=== PATIENT | male | born 1950 | race Caucasian/White ===

== ENCOUNTER 2019-05-07 03:00 | Emergency (ER) | payer MEDICARE ==
[2019-05-07] MEDS ORDERED: ASPIRIN 81 MG TABLET, CHEWABLE PO ONE (04:13)
[2019-05-07 04:35] LABS: ABSOLUTE BASOPHILS # (AUTO) 0.1 10^3/uL (0.0-0.2); ABSOLUTE EOSINOPHILS # (AUTO) 0.1 10^3/uL (0.0-0.6); ABSOLUTE LYMPHOCYTES (AUTO) 2.7 10^3/uL (0.5-4.7); ABSOLUTE MONOCYTES (AUTO) 0.7 10^3/uL (0.1-1.4); BASOPHILS % (AUTO) 0.7 % (0-2); EOSINOPHILS % (AUTO) 1.6 % (0-6); HEMATOCRIT 47.1 % (37.9-51.0); HEMOGLOBIN 16.5 g/dL (13.5-17.0); LYMPHOCYTES % (AUTO) 35.8 % (13-45); MEAN CORPUSCULAR HEMOGLOBIN 33.8 pg (27.0-33.4); MEAN CORPUSCULAR HGB CONC 35.1 g/dL (32.0-36.0); MEAN CORPUSCULAR VOLUME 97 fl (80-97); MONOCYTES % (AUTO) 9.4 % (3-13); PLATELET COUNT 114 10^3/uL (150-450); RED BLOOD COUNT 4.88 10^6/uL (4.35-5.55); RED CELL DISTRIBUTION WIDTH 13.8 % (11.5-14.0); SEGMENTED NEUTROPHILS % (AUTO) 52.5 % (42-78); TOTAL CELLS COUNTED % (AUTO) 100 %; WHITE BLOOD COUNT 7.7 10^3/uL (4.0-10.5)
[2019-05-07 04:49] LABS: ALBUMIN 4.9 g/dL (3.5-5.0); ALKALINE PHOSPHATASE 141 U/L (38-126); ANION GAP 9 (5-19); ASPARTATE AMINO TRANSFERASE 36 U/L (17-59); BILIRUBIN,DIRECT 0.2 mg/dL (0.0-0.4); BILIRUBIN,TOTAL 0.8 mg/dL (0.2-1.3); BLOOD UREA NITROGEN 14 mg/dL (7-20); CARBON DIOXIDE 29 mmol/L (22-30); CHLORIDE 103 mmol/L (98-107); CREATINE KINASE 42 U/L (55-170); GLUCOSE 99 mg/dL (75-110); POTASSIUM 4.1 mmol/L (3.6-5.0); TOTAL PROTEIN 7.8 g/dL (6.3-8.2)
[2019-05-07 05:01] LABS: CREATINE KINASE MB 0.52 ng/mL (<4.55); TROPONIN I < 0.012 ng/mL
--- NOTE | 2019-05-07 05:31 | RADIOLOGY REPORT (SQ) ---
Chest single view on 05/07/2019 at 4:33 AM CLINICAL INDICATION: Chest pain COMPARISON: None FINDINGS: The lungs are clear. Cardiac, hilar and mediastinal contours are within normal limits. Pulmonary vascularity is within normal limits. No bony abnormality is noted. IMPRESSION: No active disease.
--- NOTE | 2019-05-07 07:13 | RADIOLOGY REPORT (SQ) ---
CT head without contrast on 05/07/2019 at 6:02 AM CLINICAL INDICATION: Confusion TECHNIQUE: Multiple axial images are obtained throughout the head without the administration of contrast. This exam was performed according to our departmental dose-optimization program, which includes automated exposure control, adjustment of the mA and/or kV according to patient size and/or use of iterative reconstruction technique. Total DLP is 963.96 mGy*cm. COMPARISON: None FINDINGS: There is no hydrocephalus. There is minimal low-density in the periventricular white matter consistent with minimal chronic small vessel ischemic changes. There is no CT evidence of acute infarct. There is no hemorrhage. There are no abnormal extra-axial fluid collections. There is no mass, mass effect or midline shift. No bony abnormality is noted. IMPRESSION: No acute intracranial abnormality.
--- NOTE | 2019-05-07 07:26 | RADIOLOGY REPORT (SQ) ---
CT chest, abdomen and pelvis with contrast on 05/07/2019 at 6:07 AM CLINICAL INDICATION: Chest pain, vomiting, generalized abdominal discomfort TECHNIQUE: Multiple axial images are obtained throughout the chest, abdomen and pelvis following the administration of IV contrast. This exam was performed according to our departmental dose-optimization program, which includes automated exposure control, adjustment of the mA and/or kV according to patient size and/or use of iterative reconstruction technique. Total DLP is 1273.53 mGy*cm. COMPARISON: None FINDINGS: CHEST: There is minimal linear atelectasis or scarring in the left upper lung. The lungs are otherwise clear. There is no pleural or pericardial effusion. There is no thoracic adenopathy. There is no thoracic aortic aneurysm or dissection. There is wall thickening of the distal esophagus that may be related to esophagitis but cannot exclude malignant process and would recommend follow-up upper endoscopy. Multiple old left lateral rib fractures that are ununited are noted. Degenerative changes are noted in the spine. No acute bony abnormality of the thorax is noted. ABDOMEN: There is a slightly irregular contour of the liver suggesting changes of cirrhosis. Small gallstone is noted within a contracted gallbladder. Bilateral renal cysts are noted. Solid abdominal organs are otherwise unremarkable. Vascular calcifications are noted. There is no abdominal adenopathy. There is no free fluid or free air within the abdomen. The abdominal portion of the GI tract is unremarkable. Pelvis: There is no free fluid in the pelvis. There is no pelvic adenopathy. Pelvic portion of the GI tract including the appendix is unremarkable. No acute bony abnormality is noted. IMPRESSION: 1. Wall thickening of the distal esophagus that may just be related to esophagitis but would recommend follow-up upper endoscopy to better evaluate. 2. Cholelithiasis. 3. Slightly irregular contour of the liver suggesting changes of cirrhosis.
[2019-05-07] MEDS ORDERED: NORMAL SALINE 1000 ML 1,000 ML IV ONE (07:47)
[2019-05-07] MEDS ORDERED: SUCRALFATE 1 GM TABLET PO ONE (08:05)
[2019-05-07] MEDS ORDERED: FAMOTIDINE 20 MG TABLET PO ONE (08:05)
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
[2019-05-07] MEDS ORDERED: IPRATROPIUM/ALBUTEROL 0.5-2.5 MG/3 ML AMPUL NEB ONE (08:50)
[2019-05-07] MEDS ORDERED: PREDNISONE 20 MG TABLET PO ONE (08:51)
[2019-05-07 11:45] VITALS: BP 150/93
--- NOTE | 2019-05-07 19:41 | EKG REPORT ---
SEVERITY:- NORMAL ECG - SINUS RHYTHM : Confirmed by: Janice Dickey MD 07-May-2019 19:40:38
== END 2019-05-07 11:33 | disposition home or self-care (01) ==
LOC: ER 03:00
DX: J40 Bronchitis, not specified as acute or chronic (principal); K20.9 Esophagitis, unspecified; R09.1 Pleurisy; K80.20 Calculus of gallbladder without cholecystitis without obstruction; R07.89 Other chest pain; R94.4 Abnormal results of kidney function studies; R05 Cough; R63.4 Abnormal weight loss; R63.0 Anorexia; F17.200 Nicotine dependence, unspecified, uncomplicated; R06.2 Wheezing; B19.20 Unspecified viral hepatitis C without hepatic coma
CPT/HCPCS: 93005; 94640; 99285; 96360; 36415; 82553; 82550; 83690; 85025; 80053; 84484; 71045; 70450; 71260; 74177; 93010; A9270 ×5; J7030; J7512; J7620

== ENCOUNTER 2020-01-31 21:10 | Emergency (ER) | payer MEDICARE ==
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
[2020-01-31 23:53] LABS: ALBUMIN 4.6 g/dL (3.5-5.0); ALKALINE PHOSPHATASE 242 U/L (38-126); ANION GAP 7 (5-19); ASPARTATE AMINO TRANSFERASE 160 U/L (17-59); BILIRUBIN,DIRECT 0.2 mg/dL (0.0-0.4); BLOOD UREA NITROGEN 16 mg/dL (7-20); CALCIUM 9.8 mg/dL (8.4-10.2); CARBON DIOXIDE 30 mmol/L (22-30); CHLORIDE 99 mmol/L (98-107); GLUCOSE 97 mg/dL (75-110); POTASSIUM 3.8 mmol/L (3.6-5.0); TOTAL PROTEIN 7.5 g/dL (6.3-8.2)
[2020-01-31 23:58] LABS: ACETAMINOPHEN < 10 ug/mL (10-30); ALCOHOL < 10 mg/dL (NONE DETECTED); SALICYLATE < 1.0 mg/dL (2.0-20.0)
[2020-02-01] LABS: APPEARANCE,URINE SLIGHTLY-CLOUDY; BILIRUBIN,URINE NEGATIVE (NEGATIVE); COLOR,URINE AMBER; GLUCOSE, URINE NEGATIVE (NEGATIVE); KETONES,URINE NEGATIVE (NEGATIVE); LEUKOCYTE ESTERASE,URINE NEGATIVE (NEGATIVE); NITRITE,URINE NEGATIVE (NEGATIVE); PROTEIN,URINE 30 mg/dL (NEGATIVE); URINE SPECIFIC GRAVITY 1.025
[2020-02-01 00:04] LABS: ABSOLUTE EOSINOPHILS # (AUTO) 0.1 10^3/uL (0.0-0.6); ABSOLUTE LYMPHOCYTES (AUTO) 1.2 10^3/uL (0.5-4.7); ABSOLUTE MONOCYTES (AUTO) 0.5 10^3/uL (0.1-1.4); ABSOLUTE NEUT (AUTO) 3.6 10^3/uL (1.7-8.2); BASOPHILS % (AUTO) 0.5 % (0-2); EOSINOPHILS % (AUTO) 1.3 % (0-6); HEMATOCRIT 40.8 % (37.9-51.0); HEMOGLOBIN 14.3 g/dL (13.5-17.0); LYMPHOCYTES % (AUTO) 22.7 % (13-45); MEAN CORPUSCULAR HEMOGLOBIN 35.3 pg (27.0-33.4); MEAN CORPUSCULAR HGB CONC 35.1 g/dL (32.0-36.0); MEAN CORPUSCULAR VOLUME 101 fl (80-97); MONOCYTES % (AUTO) 8.9 % (3-13); RED BLOOD COUNT 4.05 10^6/uL (4.35-5.55); RED CELL DISTRIBUTION WIDTH 14.3 % (11.5-14.0); SEGMENTED NEUTROPHILS % (AUTO) 66.6 % (42-78); TOTAL CELLS COUNTED % (AUTO) 100 %; WHITE BLOOD COUNT 5.3 10^3/uL (4.0-10.5)
[2020-02-01 00:14] LABS: URINE AMPHETAMINES SCREEN NEGATIVE; URINE BARBITURATES SCREEN NEGATIVE; URINE COCAINE SCREEN NEGATIVE; URINE MARIJUANA (THC) SCREEN NEGATIVE; URINE METHADONE SCREEN NEGATIVE; URINE PHENCYCLIDINE SCREEN NEGATIVE
[2020-02-01 00:18] LABS: ADD MANUAL MICROSCOPIC YES; URINE BENZODIAZEPINES SCREEN UNCONFIRMED POSITIVE
[2020-02-01 00:19] LABS: BACTERIA,URINE TRACE /HPF
[2020-02-01 00:24] LABS: PLATELET COUNT 83 10^3/uL (150-450)
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
--- NOTE | 2020-02-01 11:08 | EKG REPORT ---
SEVERITY:- ABNORMAL ECG - SINUS RHYTHM LEFT VENTRICULAR HYPERTROPHY : Confirmed by: Janice Dickey MD 01-Feb-2020 11:08:19
[2020-02-01] MEDS ORDERED: GABAPENTIN 300 MG CAPSULE PO ONE (12:58)
[2020-02-01] MEDS ORDERED: LAMOTRIGINE 100 MG TABLET PO ONE (12:58)
[2020-02-01] MEDS ORDERED: METHYLPHENIDATE HCL 5 MG TABLET PO ONE (12:58)
[2020-02-01] MEDS ORDERED: METHYLPHENIDATE HCL 5 MG TABLET PO SCH (18:00)
[2020-02-01] MEDS ORDERED: LAMOTRIGINE 100 MG TABLET PO SCH (18:00)
[2020-02-01 18:36] VITALS: BP 165/64
[2020-02-01] MEDS ORDERED: QUETIAPINE FUMARATE 100 MG TABLET PO SCH (22:00)
[2020-02-01] MEDS ORDERED: GABAPENTIN 300 MG CAPSULE PO SCH (22:00)
--- NOTE | 2020-02-02 18:08 | PSYCHOLOGICAL NOTE ---
Psych Note - Psych Note Date seen by psych provider: 02/01/20 Time seen by psych provider: 17:30 Psych Note: This clinician coordinated linkage and referral to [facility] for voluntary in patient treatment. Patient gave verbal consent to make linkage and referral. Spoke to Priscila who stated they would hold a bed for 1900. This clinician and a security system installer walked patient to [facility].
== END 2020-02-01 18:45 | disposition home or self-care (01) ==
LOC: ER 21:10
DX: F31.62 Bipolar disorder, current episode mixed, moderate (principal); F17.200 Nicotine dependence, unspecified, uncomplicated; F41.9 Anxiety disorder, unspecified
CPT/HCPCS: 93005; 99285; 36415; 80307 ×4; 85025; 80053; 81001; 93010; A9270 ×3; J3490

== ENCOUNTER 2020-05-15 16:18 | Inpatient (IN) | payer MEDICARE ==
[2020-05-15] MEDS ORDERED: NORMAL SALINE 1000 ML 1,000 ML IV ONE ×2 (17:33→22:42)
--- NOTE | 2020-05-15 17:41 | ER Document Report ---
ED Medical Screen (RME) - General Chief Complaint: Feet Swelling Stated Complaint: FEET SWELLING,TARRY STOOLS Time Seen by Provider: 05/15/20 17:21 - HPI Notes: 05/15/20 17:34 69-year-old male presents emergency room with multiple complaints with a history of lung/ throat cancer, COPD with complaints of black tarry stool for the last 4 months, unexplained weight loss of 40 pounds in last 5 weeks, abdominal distention over the last 10 days, feet swelling over the last couple of months, vomiting, lack of appetite and has not been able to see a doctor due to being homeless and not having insurance. Patient states his last bowel movement was today. Patient states that he was told he had lung and throat cancer but has not followed up with a provider for this issue. Patient did not have any active chest pain today or shortness of breath, states he has had chest tightness associated with the COPD for years. Patient is not on any blood thinners. Has never had a colonoscopy or endoscopy. I have greeted and performed a rapid initial assessment of this patient. A comprehensive ED assessment and evaluation of the patient, analysis of test results and completion of the medical decision making process will be conducted by additional ED providers. PHYSICAL EXAMINATION: GENERAL: Chronically ill malnourished and in no acute distress. CV: s1, s2 regular LUNGS: No respiratory distress abd: Abdominal distention, tenderness to palpation. No CVA tenderness appreciated bilaterally Musculoskeletal: Normal range of motion NEUROLOGICAL: Normal speech, normal gait. SKIN: Warm, Dry, normal turgor, no rashes or lesions noted. Bilateral non- pitting edema - Related Data Allergies/Adverse Reactions: No Known Allergies Allergy (Unverified 05/07/19 03:03) Past Medical History - Social History Frequency of alcohol use: None Drug Abuse: None Psychiatric Medical History: Reports: Hx Bipolar Disorder Physical Exam - Vital signs Vitals: Temp Pulse Resp BP Pulse Ox 98.4 F 73 18 177/86 H 99 05/15/20 16:05/15/20 16:05/15/20 16:05/15/20 16:05/15/20 16:31 Course - Vital Signs Vital signs: Temp Pulse Resp BP Pulse Ox 98.4 F 73 18 177/86 H 99 05/15/20 16:05/15/20 16:05/15/20 16:31 05/15/20 16:31 05/15/20 16:31
--- NOTE | 2020-05-15 18:09 | RADIOLOGY REPORT (SQ) ---
EXAM DESCRIPTION: CHEST 2 VIEWS IMAGES COMPLETED DATE/TIME: 05/15/2020 5:53 pm REASON FOR STUDY: weight loss 40lbs in 5weeks, hx COMPARISON: 05/07/2019 EXAM PARAMETERS: NUMBER OF VIEWS: two views TECHNIQUE: Digital Frontal and Lateral radiographic views of the chest acquired. RADIATION DOSE: NA LIMITATIONS: none FINDINGS: LUNGS AND PLEURA: No opacities, masses or pneumothorax. No pleural effusion. MEDIASTINUM AND HILAR STRUCTURES: No masses or contour abnormalities. HEART AND VASCULAR STRUCTURES: Heart normal size. No evidence for failure. BONES: No acute findings. HARDWARE: None in the chest. OTHER: No other significant finding. IMPRESSION: NO ACUTE RADIOGRAPHIC FINDING IN THE CHEST. TECHNICAL DOCUMENTATION: JOB ID: [id number] 2010 [employer]- All Rights Reserved Reading location - IP/workstation name: [email or web address]
[2020-05-15 18:58] LABS: ABSOLUTE EOSINOPHILS # (AUTO) 0.1 10^3/uL (0.0-0.6); ABSOLUTE LYMPHOCYTES (AUTO) 1.1 10^3/uL (0.5-4.7); ABSOLUTE MONOCYTES (AUTO) 0.5 10^3/uL (0.1-1.4); ABSOLUTE NEUT (AUTO) 4.7 10^3/uL (1.7-8.2); BASOPHILS % (AUTO) 0.7 % (0-2); EOSINOPHILS % (AUTO) 1.4 % (0-6); HEMATOCRIT 36.9 % (37.9-51.0); HEMOGLOBIN 12.8 g/dL (13.5-17.0); LYMPHOCYTES % (AUTO) 16.7 % (13-45); MEAN CORPUSCULAR HEMOGLOBIN 34.5 pg (27.0-33.4); MEAN CORPUSCULAR HGB CONC 34.7 g/dL (32.0-36.0); MEAN CORPUSCULAR VOLUME 99 fl (80-97); MONOCYTES % (AUTO) 7.5 % (3-13); PLATELET COUNT 197 10^3/uL (150-450); RED BLOOD COUNT 3.71 10^6/uL (4.35-5.55); RED CELL DISTRIBUTION WIDTH 14.4 % (11.5-14.0); SEGMENTED NEUTROPHILS % (AUTO) 73.7 % (42-78); TOTAL CELLS COUNTED % (AUTO) 100 %; WHITE BLOOD COUNT 6.4 10^3/uL (4.0-10.5)
[2020-05-15 19:11] LABS: ALBUMIN 3.6 g/dL (3.5-5.0); ALKALINE PHOSPHATASE 601 U/L (38-126); ASPARTATE AMINO TRANSFERASE 133 U/L (17-59); BILIRUBIN,DIRECT 0.8 mg/dL (0.0-0.4); BILIRUBIN,TOTAL 1.3 mg/dL (0.2-1.3); BLOOD UREA NITROGEN 17 mg/dL (7-20); CALCIUM 9.7 mg/dL (8.4-10.2); CARBON DIOXIDE 33 mmol/L (22-30); CHLORIDE 101 mmol/L (98-107); GLUCOSE 104 mg/dL (75-110); TOTAL PROTEIN 6.7 g/dL (6.3-8.2)
[2020-05-15 19:27] LABS: ANION GAP 4 (5-19)
[2020-05-15 20:22] LABS: INTERNATIONAL RATION (INR) 0.92; PARTIAL THROMBOPLASTIN TIME 31.6 SEC (23.5-35.8); PROTHROMBIN TIME 12.5 SEC (11.4-15.4)
[2020-05-15] MEDS ORDERED: ONDANSETRON 4 MG TAB.RAPDIS PO ONE (20:23)
[2020-05-15] MEDS ORDERED: ONDANSETRON HCL INJ/PF 4 MG/2 ML SDV IV ONE (20:25)
[2020-05-15 21:51] LABS: APPEARANCE,URINE CLEAR; BILIRUBIN,URINE NEGATIVE (NEGATIVE); CALCIUM OXALATE CRYSTALS,URINE FEW /HPF; COLOR,URINE AMBER; GLUCOSE, URINE NEGATIVE (NEGATIVE); KETONES,URINE NEGATIVE (NEGATIVE); LEUKOCYTE ESTERASE,URINE NEGATIVE (NEGATIVE); NITRITE,URINE NEGATIVE (NEGATIVE); PROTEIN,URINE NEGATIVE (NEGATIVE); URINE SPECIFIC GRAVITY 1.021
--- NOTE | 2020-05-15 22:19 | ER Document Report ---
ED General - General Chief Complaint: Feet Swelling Stated Complaint: FEET SWELLING,TARRY STOOLS Time Seen by Provider: 05/15/20 17:21 - HPI Notes: 69-year-old male presents with multiple complaints. Patient states that he saw his psychiatric doctor today and was advised to come to the emergency department. Patient states that he has been having black/tarry stools for the past 4-month. Does not occur all the time, seems to be some dependent on what he eats, for example if he eats kristopher crackers he does not have any dark tarry stools. He says he has never seen any blood. He is not on any blood thinners. He additionally reports that he has been having nausea and vomiting after eating, ongoing for several months, states that he will vomit about 3 minutes after eating. He reports decreased appetite. He states that his stools are soft, denies diarrhea. He has noted that his abdomen has been distended recently, he states that it "feels like a bump". Patient states that on his weight check today he had lost 40 pounds in the past 5 weeks. He also reports swelling to his lower extremities, ongoing for a couple of months. He states that he frequently has cramping in his legs and he will often wake up in the middle the night feeling like his legs are made of cement. Patient states he has been told he has liver issues, he states he is also been told he probably has lung cancer due to his long smoking history, lung cancer has not been formally diagnosed. He denies current drug or alcohol use, states he has been sober for 30 years. - Related Data Allergies/Adverse Reactions: No Known Allergies Allergy (Unverified 05/07/19 03:03) Past Medical History - General Information source: Patient - Social History Smoking Status: Current Every Day Smoker Frequency of alcohol use: None Drug Abuse: None Family History: Reviewed & Not Pertinent Psychiatric Medical History: Reports: Hx Bipolar Disorder Review of Systems - Review of Systems Constitutional: Weight loss. denies: Fever EENT: No symptoms reported Cardiovascular: denies: Chest pain Respiratory: denies: Short of breath Gastrointestinal: Abdomen distended, Nausea, Vomiting, Poor appetite, Black stools Genitourinary: No symptoms reported Musculoskeletal: Muscle pain Skin: denies: Change in color Neurological/Psychological: No symptoms reported Physical Exam - Vital signs Vitals: Temp Pulse Resp BP Pulse Ox 98.4 F 73 18 177/86 H 99 05/15/20 16:31 05/15/20 16:31 05/15/20 16:31 05/15/20 16:31 05/15/20 16:31 - General General appearance: Alert In distress: None Notes: Chronically ill-appearing - HEENT Head: Normocephalic, Atraumatic Eyes: No: Scleral icterus Extraocular movements intact: Yes Pupils: PERRL - Respiratory Breath sounds: Normal. No: Rales - Cardiovascular Rhythm: Regular Normal capillary refill: Yes - Abdominal Distension: Distended, Fluid wave Bowel sounds: Normal Tenderness: Nontender - Rectal Tenderness: No Stool: Heme negative. No: Black Hemorrhoids: None - Extremities General upper extremity: Other - Thin upper extremities General lower extremity: Edema - 1+ pitting, Other - Thin lower extremities - Neurological Neuro grossly intact: Yes Orientation: AAOx4 - Psychological Associated symptoms: No: Confused - Skin Skin Temperature: Warm Skin Color: negative: Jaundiced Course - Re-evaluation Re-evalutation: 69-year-old male with abdominal distention, poor appetite, nausea/vomiting, marked weight loss and reports of black tarry stools. On exam he is chronically ill-appearing, afebrile, vital signs stable, no acute distress currently. His abdomen is distended with a fluid wave, no focal area of tenderness. Does have some lower extremity edema as well. Rectal exam performed, brown stool which was heme negative returned, patient stating that he just had a bowel movement that was not tarry. I suspect the patient has cirrhosis and is likely in some degree of decompensation. He is not jaundiced, mentation is intact. Possible he might have cancer as well as he exhibits many symptoms that suggest this. CT chest and abdomen/pelvis ordered to assess. Will give fluids, normal saline, avoiding LR as concern for liver dysfunction. He received Zofran. Possible that he might have some degree of CHF, however favoring more so hypoalbumin state attributing to his peripheral edema. 05/16/20 00:24 CT chest and abdomen reviewed. Per radiology lungs are clear, some bowel edema likely due to third spacing, has moderate ascites. Patient was updated on results. 05/16/20 00:31 No leukocytosis. Has a anemia present, not at transfusion threshold. Platelets are within normal limits. Synthetic function appears to be intact, INR is 0.92 and PTT is within normal limits. Electrolytes are okay. He does have albumin, 3.6. There is elevation of AST and ALT. Urine does not suggest UTI, additionally there is no bilirubin in the urine. I discussed the case with the hospitalist team, he will be admitted for further management. - Vital Signs Vital signs: Temp Pulse Resp BP Pulse Ox 97.9 F 59 L 16 159/91 H 100 05/15/20 22:31 05/15/20 22:31 05/15/20 22:31 05/15/20 22:31 05/15/20 22:31 - Laboratory Result Diagrams: 05/15/20 18:30 05/15/20 18:30 Laboratory results interpreted by me: 05/15/20 05/15/20 05/15/20 18:30 18:30 18:30 RBC 3.71 L Hgb 12.8 L Hct 36.9 L MCV 99 H MCH 34.5 H RDW 14.4 H Carbon Dioxide 33 H Anion Gap 4 L Direct Bilirubin 0.8 H AST 133 H ALT 151 H Alkaline Phosphatase 601 H NT-Pro-B Natriuret Pep 991 H Lipase 451.6 H Urine Urobilinogen 05/15/20 21:30 RBC Hgb Hct MCV MCH RDW Carbon Dioxide Anion Gap Direct Bilirubin AST ALT Alkaline Phosphatase NT-Pro-B Natriuret Pep Lipase Urine Urobilinogen 4.0 H - Diagnostic Test Radiology reviewed: Image reviewed, Reports reviewed Discharge - Discharge Clinical Impression: Cirrhosis Qualifiers: Hepatic cirrhosis type: unspecified hepatic cirrhosis Ascites presence: with ascites Qualified Code(s): K74.60 - Unspecified cirrhosis of liver; R18.8 - Other ascites Disposition: ADMITTED INPATIENT Admitting Provider: Leny (Hospitalist) Unit Admitted: Medical Floor
--- NOTE | 2020-05-15 23:52 | RADIOLOGY REPORT (SQ) ---
CLINICAL INDICATION: abd pain, abd distention, +n/v, weight loss . . TECHNIQUE: Contrast enhanced spiral axial CT images obtained through chest abdomen and pelvis with multiplanar reconstructions. This exam was performed according to our departmental dose-optimization program, which includes automated exposure control, adjustment of the mA and/or kV according to patient size and/or use of iterative reconstruction techniques. COMPARISON: May 07, 2019. CORRELATION: None. FINDINGS: Chest: The heart is of normal size. No pericardial effusion. No bulky mediastinal adenopathy. Esophageal thickening and edema, progressive The lungs are grossly clear. No consolidation or edema. No effusion or pneumothorax. Mild chronic change Abdomen: The liver is heterogeneous. The gallbladder is contracted with cholelithiasis. The pancreas is unremarkable. The spleen is enlarged at 16.6 cm craniocaudad. The adrenals are unremarkable. The kidneys appear grossly normal without evidence of urolithiasis or hydronephrosis. There is no evidence of free air. Moderate free fluid. No bulky adenopathy. Abdominal aorta is calcified but nonaneurysmal. Pelvis: The bowel is nonobstructed. The bowel is unopacified with oral contrast. Pelvic contents are unremarkable. The appendix is not seen. Mild diffuse bowel edema, likely due to third spacing of fluid. Visualized bones demonstrate age-appropriate osteoarthritis. Old posttraumatic change. IMPRESSION: Progressive medical hepatic disease when compared to prior. Moderate ascites. This is potentially percutaneously accessible. No acute intrathoracic process is identified. Remote posttraumatic/postsurgical change to the left hemithorax.
[2020-05-16] MEDS ORDERED: TEMAZEPAM 7.5 MG CAPSULE PO PRN (00:46)
[2020-05-16] MEDS ORDERED: ONDANSETRON HCL INJ/PF 4 MG/2 ML SDV IV PRN (00:46)
[2020-05-16] MEDS ORDERED: MAG HYDROX/AL HYDROX/SIMETH SUSP 30 ML UDCUP PO PRN (00:46)
[2020-05-16] MEDS ORDERED: IPRATROPIUM/ALBUTEROL 0.5-2.5 MG/3 ML AMPUL NEB PRN (00:46)
[2020-05-16] MEDS ORDERED: ACETAMINOPHEN 325 MG TABLET PO PRN (00:46)
[2020-05-16] MEDS ORDERED: DEXTROSE 5%-WATER 1000 ML 1,000 ML IV PRN (01:31)
--- NOTE | 2020-05-16 01:49 | PDOC H&P ---
History of Present Illness Admission Date/PCP: 05/16/20 00:43 History of Present Illness: MENDEZ KHAN is a 69 year old male past medical history of bipolar depression, remote history of IV drug abuse, remote history of alcohol abuse, has been sober for the last 30 years, history of hepatitis C treated by gastroenterology 15 years ago, presenting to ED after being seen by his psychiatrist and was advised to come to ED. Patient is stating that he has lost about 40 pounds in the last 5 to 6 weeks, has dysphagia, stating that he cannot tolerate liquid or solid, he is able to swallow however he vomits everything out couple of minutes later, denies any hemoptysis, denies any gastric or GI malignancy, complaining of worsening abdominal distention, denies any fever, shortness of breath, chills, diarrhea, constipation or any urinary symptoms. In ED he was noted to have abdominal distention, CT abdomen pelvis showed worsening ascites but was negative for any malignancy, CT chest is also positive for esophageal thickening and edema. Patient was complaining of pain intermittent dark stool depending on his diet however stool guaiac was negative in ED. 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" Psychiatric Medical History: Reports: Bipolar Disorder Social History Smoking Status: Current Every Day Smoker Family History Family History: Reviewed & Not Pertinent Parental Family History Reviewed: Yes Children Family History Reviewed: Yes Sibling(s) Family History Reviewed.: Yes Medication/Allergy Home Medications: Famotidine [Pepcid 20 mg Tablet] 20 mg PO BID #60 tablet 05/07/19 Gabapentin [Neurontin 300 mg Capsule] 1,500 mg PO DAILY 05/07/19 Ipratropium/Albuterol Sulfate [Combivent Respimat 4 gm Mdi] 1 puff IH Q6 #1 aer.w.adap 05/07/19 Lamotrigine [Lamictal 100 mg Tablet] 200 mg PO QAM 05/07/19 Lidocaine [Lidoderm 5% (700 mg) Transdermal Patch] 1 patch TP DAILY PRN #10 adh ..patch 05/07/19 Mirtazapine 30 mg PO QHS 05/07/19 Prednisone [Deltasone 20 mg Tablet] 2 tab PO DAILY 4 Days tablet 05/07/19 Quetiapine Fumarate [Seroquel] 800 mg PO QHS 05/07/19 Sertraline HCl [Zoloft] 200 mg PO QAM 05/07/19 Sucralfate [Carafate 1 gm Tablet] 1 gm PO ACHS #120 tablet 05/07/19 Allergies/Adverse Reactions: No Known Allergies Allergy (Unverified 05/07/19 03:03) Review of Systems Review of Systems: as per hpi Physical Exam Vital Signs: Temp Pulse Resp BP Pulse Ox 97.9 F 59 L 16 159/91 H 100 05/15/20 22:31 05/15/20 22:31 05/15/20 22:31 05/15/20 22:31 05/15/20 22:31 Intake & Output 05/14/20 05/15/20 05/16/20 06:59 06:59 06:59 Weight 68 kg General appearance: PRESENT: no acute distress, well-developed, well-nourished Head exam: PRESENT: atraumatic, normocephalic Respiratory exam: PRESENT: clear to auscultation larry. ABSENT: rales, rhonchi, wheezes Cardiovascular exam: PRESENT: RRR. ABSENT: diastolic murmur, rubs, systolic murmur GI/Abdominal exam: PRESENT: ascites, distended, firm, normal bowel sounds, soft. ABSENT: guarding, mass, organolmegaly, rebound, tenderness Extremities exam: PRESENT: full ROM, +1 edema. ABSENT: calf tenderness, clubbing, pedal edema Neurological exam: PRESENT: alert, awake, oriented to person, oriented to place, oriented to time, oriented to situation, CN II-XII grossly intact. ABSENT: motor sensory deficit Results Laboratory Results: 05/15/20 18:30 05/15/20 18:30 05/15/20 05/15/20 05/15/20 18:30 18:30 18:30 WBC 6.4 RBC 3.71 L Hgb 12.8 L Hct 36.9 L MCV 99 H MCH 34.5 H MCHC 34.7 RDW 14.4 H Plt Count 197 Seg Neutrophils % 73.7 Sodium 138.3 Potassium 5.0 Chloride 101 Carbon Dioxide 33 H Anion Gap 4 L BUN 17 Creatinine 0.98 Est GFR ( Amer) > 60 Glucose 104 Calcium 9.7 Total Bilirubin 1.3 AST 133 H Alkaline Phosphatase 601 H Ammonia 13.3 Total Protein 6.7 Albumin 3.6 Lipase 451.6 H Urine Color Urine Appearance Urine pH Ur Specific [place] Urine Protein Urine Glucose (UA) Urine Ketones Urine Blood Urine Nitrite Ur Leukocyte Esterase Urine WBC (Auto) Urine RBC (Auto) 05/15/20 21:30 WBC RBC Hgb Hct MCV MCH MCHC RDW Plt Count Seg Neutrophils % Sodium Potassium Chloride Carbon Dioxide Anion Gap BUN Creatinine Est GFR ( Amer) Glucose Calcium Total Bilirubin AST Alkaline Phosphatase Ammonia Total Protein Albumin Lipase Urine Color REE Urine Appearance CLEAR Urine pH 6.0 Ur Specific [place] 1.021 Urine Protein NEGATIVE Urine Glucose (UA) NEGATIVE Urine Ketones NEGATIVE Urine Blood NEGATIVE Urine Nitrite NEGATIVE Ur Leukocyte Esterase NEGATIVE Urine WBC (Auto) 0 Urine RBC (Auto) 4 05/15/20 18:30 NT-Pro-B Natriuret Pep 991 H Impressions: Abdomen/Pelvis CT 05/15/20 17:31 IMPRESSION: Progressive medical hepatic disease when compared to prior. Moderate ascites. This is potentially percutaneously accessible. No acute intrathoracic process is identified. Remote posttraumatic/postsurgical change to the left hemithorax. Chest X-Ray 05/15/20 17:33 IMPRESSION: NO ACUTE RADIOGRAPHIC FINDING IN THE CHEST. Chest CT 05/15/20 22:23 IMPRESSION: Progressive medical hepatic disease when compared to prior. Moderate ascites. This is potentially percutaneously accessible. No acute intrathoracic process is identified. Remote posttraumatic/postsurgical change to the left hemithorax. Assessment and Plan - Diagnosis (1) Ascites Qualifiers: Ascites type: due to alcoholic hepatitis Qualified Code(s): K70.11 - Alcoholic hepatitis with ascites Is this a current diagnosis for this admission?: Yes Plan: Most likely due to worsening hepatic cirrhosis likely due to alcohol and h epatitis C. Denies abdominal pain denies any fever. No leukocytosis. No sign of SBP. Fluid restriction, diagnostic and therapeutic paracentesis. IV Lasix and Aldactone. (2) Dysphagia Qualifiers: Dysphagia type: esophageal phase Qualified Code(s): R13.10 - Dysphagia, unspecified Is this a current diagnosis for this admission?: Yes Plan: Complaining of dysphagia for liquids and solids. Stating that he is able to swallow food however he vomits it out couple of minutes later. Denies any history of gastric or GI malignancy. CT chest positive for esophageal edema. Continue treating underlying ascites, consult gastroenterology or surgery for possible upper GI endoscopy. Consult speech therapy. (3) Weight loss Is this a current diagnosis for this admission?: Yes Plan: Due to anorexia because of underlying hepatic cirrhosis, underlying malignancy cannot be ruled out. Treat underlying dysphagia, consult speech therapy, consult registered dietitian. (4) Anorexia Is this a current diagnosis for this admission?: Yes Plan: Due to underlying dysphagia. Plan as per dysphagia. (5) Bipolar depression Is this a current diagnosis for this admission?: Yes Plan: Resume home meds. Outpatient psychiatry follow-up. (6) Cirrhosis Qualifiers: Hepatic cirrhosis type: unspecified hepatic cirrhosis Ascites presence: with ascites Qualified Code(s): K74.60 - Unspecified cirrhosis of liver; R18.8 - Other ascites Is this a current diagnosis for this admission?: Yes Plan: History of heavy alcohol abuse. History of hepatitis C treated 15 years ago. We will obtain hepatitis panel. Outpatient PCP and gastroenterology follow-up. Plan as per above. (7) History of alcohol abuse Is this a current diagnosis for this admission?: Yes Plan: Patient is stating that he has been sober for 30 years. Alcohol level negative. Encouraged abstinence. - Time Time Spent with patient: 35 or more minutes Medications reviewed and adjusted accordingly: Yes Anticipated Discharge Disposition[facility] Anticipated Discharge Timeframe: within 72 hours
[2020-05-16] MEDS: PANTOPRAZOLE SODIUM 40 MG TABLET.DR PO SCH ×2 (05:36→16:48)
[2020-05-16] MEDS ORDERED: MULTIVITS (INFANT) W-IRON & FLUORIDE (0.25 MG/ML) DROPS PO SCH (10:00)
[2020-05-16] MEDS ORDERED: ENOXAPARIN SODIUM INJ 40 MG/0.4 ML DISP.SYRIN SUBCUT SCH (10:00)
[2020-05-16] MEDS: SPIRONOLACTONE 25 MG TABLET PO SCH ×2 (11:32→21:34)
[2020-05-16] MEDS: DOCUSATE SODIUM 100 MG/10 ML UDC PO SCH (11:34)
[2020-05-16] MEDS: FOLIC ACID 1 MG TABLET PO SCH (11:34)
[2020-05-16] MEDS: RIFAXIMIN 550 MG TABLET PO SCH ×2 (11:35→18:15)
[2020-05-16] MEDS: MULTIVITS W-MIN/IRON SOLN 60 ML PO SCH (11:50)
[2020-05-16] MEDS: FUROSEMIDE INJ/PF 20 MG/2 ML SDV IV SCH ×2 (11:54→21:48)
[2020-05-16] MEDS: THIAMINE HCL 100 MG TABLET PO SCH (11:58)
[2020-05-16] MEDS ORDERED: ATENOLOL 50 MG TABLET PO SCH (12:00)
--- NOTE | 2020-05-16 12:23 | PDOC PROGRESS REPORT ---
Subjective Reason For Visit: ANOREXIA,WEIGHT LOSS,ASCITES Physical Exam Vital Signs: Temp Pulse Resp BP Pulse Ox 98.1 F 59 L 16 130/79 H 97 05/16/20 11:51 05/16/20 11:51 05/16/20 11:51 05/16/20 11:51 05/16/20 11:51 Intake & Output 05/15/20 05/16/20 05/17/20 06:59 06:59 06:59 Intake Total 1260 Balance 1260 Weight 68.7 kg General appearance: PRESENT: no acute distress, cooperative, disheveled, thin, well-developed Head exam: PRESENT: atraumatic, normocephalic Eye exam: PRESENT: conjunctiva pink, EOMI, PERRLA. ABSENT: scleral icterus Mouth exam: PRESENT: moist, tongue midline Teeth exam: PRESENT: poor dentation Respiratory exam: PRESENT: clear to auscultation larry, symmetrical, unlabored. ABSENT: rales, rhonchi, wheezes Cardiovascular exam: PRESENT: RRR, +S1, +S2. ABSENT: diastolic murmur, rubs, systolic murmur Vascular exam: PRESENT: normal capillary refill GI/Abdominal exam: PRESENT: ascites, normal bowel sounds, soft. ABSENT: distended, guarding, mass, organolmegaly, rebound, tenderness Rectal exam: PRESENT: deferred Extremities exam: PRESENT: full ROM. ABSENT: calf tenderness, clubbing, pedal edema Musculoskeletal exam: PRESENT: ambulatory Neurological exam: PRESENT: alert, awake, oriented to person, oriented to place, oriented to time, oriented to situation, CN II-XII grossly intact. ABSENT: motor sensory deficit Psychiatric exam: PRESENT: appropriate affect, normal mood. ABSENT: homicidal ideation, suicidal ideation Skin exam: PRESENT: dry, intact, warm. ABSENT: cyanosis, rash Results Laboratory Results: 05/15/20 18:30 05/15/20 18:30 05/15/20 05/15/20 05/15/20 18:30 18:30 18:30 WBC 6.4 RBC 3.71 L Hgb 12.8 L Hct 36.9 L MCV 99 H MCH 34.5 H MCHC 34.7 RDW 14.4 H Plt Count 197 Seg Neutrophils % 73.7 Sodium 138.3 Potassium 5.0 Chloride 101 Carbon Dioxide 33 H Anion Gap 4 L BUN 17 Creatinine 0.98 Est GFR ( Amer) > 60 Glucose 104 Calcium 9.7 Total Bilirubin 1.3 AST 133 H Alkaline Phosphatase 601 H Ammonia 13.3 Total Protein 6.7 Albumin 3.6 Lipase 451.6 H Urine Color Urine Appearance Urine pH Ur Specific [place] Urine Protein Urine Glucose (UA) Urine Ketones Urine Blood Urine Nitrite Ur Leukocyte Esterase Urine WBC (Auto) Urine RBC (Auto) 05/15/20 21:30 WBC RBC Hgb Hct MCV MCH MCHC RDW Plt Count Seg Neutrophils % Sodium Potassium Chloride Carbon Dioxide Anion Gap BUN Creatinine Est GFR ( Amer) Glucose Calcium Total Bilirubin AST Alkaline Phosphatase Ammonia Total Protein Albumin Lipase Urine Color REE Urine Appearance CLEAR Urine pH 6.0 Ur Specific [place] 1.021 Urine Protein NEGATIVE Urine Glucose (UA) NEGATIVE Urine Ketones NEGATIVE Urine Blood NEGATIVE Urine Nitrite NEGATIVE Ur Leukocyte Esterase NEGATIVE Urine WBC (Auto) 0 Urine RBC (Auto) 4 05/15/20 18:30 NT-Pro-B Natriuret Pep 991 H Impressions: Abdomen/Pelvis CT 05/15/20 17:31 IMPRESSION: Progressive medical hepatic disease when compared to prior. Moderate ascites. This is potentially percutaneously accessible. No acute intrathoracic process is identified. Remote posttraumatic/postsurgical change to the left hemithorax. Chest X-Ray 05/15/20 17:33 IMPRESSION: NO ACUTE RADIOGRAPHIC FINDING IN THE CHEST. Chest CT 05/15/20 22:23 IMPRESSION: Progressive medical hepatic disease when compared to prior. Moderate ascites. This is potentially percutaneously accessible. No acute intrathoracic process is identified. Remote posttraumatic/postsurgical change to the left hemithorax. Assessment and Plan - Diagnosis (1) Ascites Qualifiers: Ascites type: due to alcoholic hepatitis Qualified Code(s): K70.11 - Alcoholic hepatitis with ascites Is this a current diagnosis for this admission?: Yes Plan: Most likely due to worsening hepatic cirrhosis likely due to alcohol and hepatitis C. Denies abdominal pain denies any fever. No leukocytosis. No sign of SBP. MELD Score 9 Fluid restriction 1.5L daily Diagnostic and therapeutic paracentesis pending. IV Lasix and Aldactone. Daily weights. Strict I&Os (2) Dysphagia Qualifiers: Dysphagia type: esophageal phase Qualified Code(s): R13.10 - Dysphagia, unspecified Is this a current diagnosis for this admission?: Yes Plan: Complaining of dysphagia for liquids and solids. Stating that he is able to swallow food however he vomits it out couple of minutes later. Denies any history of gastric or GI malignancy. CT chest positive for esophageal edema. Continue treating underlying ascites, consult gastroenterology or surgery for possible upper GI endoscopy. Speech therapy has cleared patient for regular consistency diet. Continue Protonix 40 mg twice daily. Start Carafate AC at bedtime. (3) Cirrhosis Qualifiers: Hepatic cirrhosis type: unspecified hepatic cirrhosis Ascites presence: with ascites Qualified Code(s): K74.60 - Unspecified cirrhosis of liver; R18.8 - Other ascites Is this a current diagnosis for this admission?: Yes Plan: History of heavy alcohol abuse. History of hepatitis C treated 15 years ago. Hepatitis panel pending. Outpatient PCP and gastroenterology follow-up. Plan as per above. (4) Anorexia Is this a current diagnosis for this admission?: Yes Plan: Secondary to #1-3 Evaluation and management as above. (5) History of alcohol abuse Is this a current diagnosis for this admission?: Yes Plan: Patient is stating that he has been sober for 30 years. Alcohol level negative. Multivitamin, folic acid, and thiamine supplementation. Encouraged abstinence. (6) Weight loss Is this a current diagnosis for this admission?: Yes Plan: Due to anorexia because of underlying hepatic cirrhosis, underlying malignancy cannot be ruled out. ST has cleared patient for regular consistency meals. book author is consulted. Remaining evaluation and management as above. (7) Bipolar depression Is this a current diagnosis for this admission?: Yes Plan: Resume home meds. Outpatient psychiatry follow-up. - Time Time Spent with patient: 15-24 minutes Medications reviewed and adjusted accordingly: Yes Anticipated Discharge Disposition: Home, Self Care Anticipated Discharge Timeframe: within 72 hours
--- NOTE | 2020-05-16 15:48 | RADIOLOGY REPORT (SQ) ---
EXAM DESCRIPTION: U/S ABD PARACENTESIS IMAGES COMPLETED DATE/TIME: 05/16/2020 3:35 pm REASON FOR STUDY: ascitis COMPARISON None. LIMITATIONS: None. PROCEDURE: After obtaining informed consent, the patient was brought to the ultrasound suite. The p rocedure was performed with the patient on a gurney. Ultrasound was used to identify a prominent poc ket of ascites in the right lower quadrant. An appropriate access site was selected. The patient wa s prepped and draped in usual sterile fashion. The access site was anesthetized with 8 mL 1% lidoca ine. A Iawm-[id number]-Vrbinhjy needle was advanced into the fluid. After aspiration of fluid the needle, th e catheter was advanced off the needle into the fluid. A total of 3,850 mL of cloudy, straw-colored fluid was removed. The patient tolerated the procedure well left the department in satisfactory condi tion. IMPRESSION: Successful ultrasound-guided paracentesis COMMENT: Patient medication list reviewed: Yes- Quality ID# [id number]:Eligible professional attests to doc umenting in the medical record they obtained, updated, or reviewed the patient's current medications. TECHNICAL DOCUMENTATION: JOB ID: [id number] 2010 [employer]- All Rights Reserved Reading location - IP/workstation name: [email or web address]
[2020-05-16] MEDS: SUCRALFATE 1 GM TABLET PO SCH ×2 (16:48→22:58)
[2020-05-16] MEDS ORDERED: (PENDING PHARMACY ID) (Atenolol [Tenormin] 25 MG) PO SCH (18:00)
[2020-05-16] MEDS ORDERED: GABAPENTIN 300 MG CAPSULE PO SCH (22:00)
[2020-05-16] MEDS ORDERED: QUETIAPINE FUMARATE 100 MG TABLET PO SCH (22:00)
[2020-05-16] MEDS ORDERED: MIRTAZAPINE 15 MG TABLET PO SCH (22:00)
[2020-05-17 05:47] LABS: ABSOLUTE EOSINOPHILS # (AUTO) 0.1 10^3/uL (0.0-0.6); ABSOLUTE LYMPHOCYTES (AUTO) 1.4 10^3/uL (0.5-4.7); ABSOLUTE MONOCYTES (AUTO) 0.4 10^3/uL (0.1-1.4); ABSOLUTE NEUT (AUTO) 2.3 10^3/uL (1.7-8.2); ABSOLUTE RETICS # 0.056 10^6/uL (0.028-0.122); BASOPHILS % (AUTO) 0.7 % (0-2); EOSINOPHILS % (AUTO) 2.1 % (0-6); HEMATOCRIT 35.8 % (37.9-51.0); HEMOGLOBIN 12.4 g/dL (13.5-17.0); LYMPHOCYTES % (AUTO) 33.7 % (13-45); MEAN CORPUSCULAR HEMOGLOBIN 34.2 pg (27.0-33.4); MEAN CORPUSCULAR HGB CONC 34.7 g/dL (32.0-36.0); MEAN CORPUSCULAR VOLUME 99 fl (80-97); MONOCYTES % (AUTO) 8.5 % (3-13); PLATELET COUNT 159 10^3/uL (150-450); RED BLOOD COUNT 3.62 10^6/uL (4.35-5.55); RED CELL DISTRIBUTION WIDTH 14.6 % (11.5-14.0); RETICULOCYTE COUNT (AUTO) 1.53 % (0.66-2.85); TOTAL CELLS COUNTED % (AUTO) 100 %; WHITE BLOOD COUNT 4.2 10^3/uL (4.0-10.5)
[2020-05-17] MEDS: PANTOPRAZOLE SODIUM 40 MG TABLET.DR PO SCH (05:50)
[2020-05-17 05:51] LABS: PROTHROMBIN TIME 12.3 SEC (11.4-15.4)
[2020-05-17 05:52] LABS: PARTIAL THROMBOPLASTIN TIME 31.7 SEC (23.5-35.8)
[2020-05-17 06:10] LABS: ALBUMIN 2.9 g/dL (3.5-5.0); ALKALINE PHOSPHATASE 480 U/L (38-126); ASPARTATE AMINO TRANSFERASE 100 U/L (17-59); BILIRUBIN,DIRECT 0.5 mg/dL (0.0-0.4); BILIRUBIN,TOTAL 0.9 mg/dL (0.2-1.3); BLOOD UREA NITROGEN 22 mg/dL (7-20); CALCIUM 9.3 mg/dL (8.4-10.2); GLUCOSE 86 mg/dL (75-110); IRON(TIBC) 109.5 ug/dL (49-181); PHOSPHORUS 3.3 mg/dL (2.5-4.5); POTASSIUM 4.5 mmol/L (3.6-5.0); TOTAL PROTEIN 5.4 g/dL (6.3-8.2)
[2020-05-17 06:16] LABS: CARBON DIOXIDE 34 mmol/L (22-30); CHLORIDE 101 mmol/L (98-107)
[2020-05-17 06:38] LABS: FREE T4 (FREE THYROXINE) 1.31 ng/dL (0.78-2.19)
[2020-05-17 06:52] LABS: THYROID STIMULATING HORMONE 1.5 uIU/mL (0.47-4.68)
[2020-05-17 07:21] LABS: FOLATE 5.57 ng/mL (>2.76)
[2020-05-17 07:26] LABS: ANION GAP 2 (5-19)
[2020-05-17] MEDS ORDERED: LAMOTRIGINE 100 MG TABLET PO SCH (08:00)
[2020-05-17] MEDS: SUCRALFATE 1 GM TABLET PO SCH ×2 (08:37→11:34)
[2020-05-17] MEDS ORDERED: SERTRALINE HCL 50 MG TABLET PO SCH (10:00)
[2020-05-17] MEDS ORDERED: GABAPENTIN 300 MG CAPSULE PO SCH (10:00)
[2020-05-17 10:37] LABS: HEPATITS B SURFACE ANTIGEN Negative (Negative)
[2020-05-17 11:02] LABS: HEPATITIS C VIRUS ANTIBODY >11.0 s/co ratio (0.0-0.9)
[2020-05-17] MEDS: SPIRONOLACTONE 25 MG TABLET PO SCH (11:20)
[2020-05-17] MEDS: DOCUSATE SODIUM 100 MG/10 ML UDC PO SCH (11:21)
[2020-05-17] MEDS: MULTIVITS W-MIN/IRON SOLN 60 ML PO SCH (11:21)
[2020-05-17] MEDS: FOLIC ACID 1 MG TABLET PO SCH (11:22)
[2020-05-17] MEDS: RIFAXIMIN 550 MG TABLET PO SCH (11:23)
[2020-05-17] MEDS: THIAMINE HCL 100 MG TABLET PO SCH (11:23)
[2020-05-17] MEDS: FUROSEMIDE INJ/PF 20 MG/2 ML SDV IV SCH (11:23)
[2020-05-17 12:37] VITALS: BP 148/44
[2020-05-17 12:45] LABS: FLUID SOURCE ASCITES; FLUID TYPE PERITONEAL
[2020-05-17 12:46] LABS: FLUID APPEARANCE CLEAR; FLUID COLOR LIGHT YELLOW; FLUID VISCOSITY LIQUID
--- NOTE | 2020-05-18 12:50 | PDOC DISCHARGE SUMMARY ---
Impression - Admit/DC Date/PCP Admission Date/Primary Care Provider: 05/16/20 00:43 Discharge Date: 05/17/20 - Discharge Diagnosis (1) Ascites Is this a current diagnosis for this admission?: Yes (2) Dysphagia Is this a current diagnosis for this admission?: Yes (3) Cirrhosis Is this a current diagnosis for this admission?: Yes (4) Anorexia Is this a current diagnosis for this admission?: Yes (5) History of alcohol abuse Is this a current diagnosis for this admission?: Yes (6) Weight loss Is this a current diagnosis for this admission?: Yes (7) Bipolar depression Is this a current diagnosis for this admission?: Yes - Additional Information Discharge Diet: Regular Discharge Activity: Activity As Tolerated, Balance Activity w/Rest Referrals: [facility] [Outside] (CALL THURSDAY TO MAKE FOLLOW UP APPT 05/21/20) Prescriptions: Spironolactone [Aldactone 25 mg Tablet] 50 mg PO Q12 #120 tablet Folic Acid [Folvite 1 mg Tablet] 1 mg PO DAILY #90 tablet Furosemide [Lasix 40 mg Tablet] 40 mg PO QAM #30 tablet Thiamine HCl [Thiamine 100 mg Tablet] 100 mg PO DAILY #90 tablet Home Medications: Gabapentin [Neurontin 300 mg Capsule] 300 mg PO DAILY 05/07/19 Lamotrigine [Lamictal 100 mg Tablet] 100 mg PO QAM 05/07/19 Atenolol [Tenormin] 25 mg PO BID 05/16/20 Gabapentin 600 mg PO QHS 05/16/20 Mirtazapine [Remeron 15 mg Tablet] 15 mg PO QHS 05/16/20 Quetiapine Fumarate [Seroquel 100 mg Tablet] 100 mg PO QHS 05/16/20 Sertraline HCl [Zoloft 50 mg Tablet] 50 mg PO DAILY 05/16/20 Folic Acid [Folvite 1 mg Tablet] 1 mg PO DAILY #90 tablet 05/17/20 Furosemide [Lasix 40 mg Tablet] 40 mg PO QAM #30 tablet 05/17/20 Spironolactone [Aldactone 25 mg Tablet] 50 mg PO Q12 #120 tablet 05/17/20 Thiamine HCl [Thiamine 100 mg Tablet] 100 mg PO DAILY #90 tablet 05/17/20 History of Present Illiness History of Present Illness: Per H&P per Dr. Michele: MENDEZ KHAN is a 69 year old male past medical history of bipolar depression, remote history of IV drug abuse, remote history of alcohol abuse, has been sober for the last 30 years, history of hepatitis C treated by gastroenterology 15 years ago, presenting to ED after being seen by his psychiatrist and was advised to come to ED. Patient is stating that he has lost about 40 pounds in the last 5 to 6 weeks, has dysphagia, stating that he cannot tolerate liquid or solid, he is able to swallow however he vomits everything out couple of minutes later, denies any hemoptysis, denies any gastric or GI malignancy, complaining of worsening abdominal distention, denies any fever, shortness of breath, chills, diarrhea, constipation or any urinary symptoms. In ED he was noted to have abdominal distention, CT abdomen pelvis showed worsening ascites but was negative for any malignancy, CT chest is also positive for esophageal thickening and edema. Patient was complaining of pain intermittent dark stool depending on his diet however stool guaiac was negative in ED. Hospital Course Hospital Course: (1) Ascites Most likely due to worsening hepatic cirrhosis likely due to alcohol and hepatitis C. Denies abdominal pain denies any fever. No leukocytosis. No sign of SBP. MELD Score 9 s/p paracentesis w/ 3.8L removed Serum albumin 2.9, peritoneal fluid albumin is pending. Peritoneal WBC 110, RBC 211 Fluid restriction 1.5L daily Continue Lasix and Aldactone. No evidence of acute infectious process. Outpatient PCP follow up; recommend GI consultation. (2) Dysphagia Symptoms resolved following paracentesis. Patient now tolerating 100% of regular diet. Likely secondary to ascites/abdominal pressure. Complaining of dysphagia for liquids and solids. Stating that he is able to swallow food however he vomits it out couple of minutes later. Denies any history of gastric or GI malignancy. CT chest positive for esophageal edema. Speech therapy has cleared patient for regular consistency diet. Continue Protonix 40 mg twice daily. Start Carafate AC at bedtime. (3) Cirrhosis History of heavy alcohol abuse. History of hepatitis C treated 15 years ago. Hep C positive. Outpatient PCP and gastroenterology follow-up. Plan as per above. (4) Anorexia Secondary to #1-3 Evaluation and management as above. (5) History of alcohol abuse Patient is stating that he has been sober for 30 years. Alcohol level negative. Multivitamin, folic acid, and thiamine supplementation. Encouraged abstinence. (6) Weight loss Due to anorexia because of underlying hepatic cirrhosis, underlying malignancy cannot be ruled out. ST has cleared patient for regular consistency meals. Remaining evaluation and management as above. (7) Bipolar depression Continue home meds. Outpatient psychiatry follow-up. Physical Exam Vital Signs: Temp Pulse Resp BP Pulse Ox 98.4 F 58 L 16 148/44 H 98 05/17/20 12:34 05/17/20 12:34 05/17/20 12:34 05/17/20 12:34 05/17/20 12:34 Intake & Output 05/17/20 05/18/20 05/19/20 06:59 06:59 06:59 Intake Total 600 Balance 600 Weight 68.7 kg General appearance: PRESENT: no acute distress, cooperative, disheveled, thin, w ell-developed Head exam: PRESENT: atraumatic, normocephalic Eye exam: PRESENT: conjunctiva pink, EOMI, PERRLA. ABSENT: scleral icterus Ear exam: PRESENT: normal external ear exam Mouth exam: PRESENT: moist, tongue midline Neck exam: ABSENT: carotid bruit, JVD, lymphadenopathy, thyromegaly Respiratory exam: PRESENT: clear to auscultation larry, symmetrical, unlabored. ABSENT: rales, rhonchi, wheezes Cardiovascular exam: PRESENT: RRR. ABSENT: diastolic murmur, rubs, systolic murmur Vascular exam: PRESENT: normal capillary refill GI/Abdominal exam: PRESENT: ascites, normal bowel sounds, soft. ABSENT: distended, guarding, mass, organolmegaly, rebound, tenderness Rectal exam: PRESENT: deferred Extremities exam: ABSENT: calf tenderness, clubbing, pedal edema Musculoskeletal exam: PRESENT: ambulatory Neurological exam: PRESENT: alert, awake, oriented to person, oriented to place, oriented to time, oriented to situation, CN II-XII grossly intact. ABSENT: motor sensory deficit Psychiatric exam: PRESENT: appropriate affect, normal mood. ABSENT: homicidal ideation, suicidal ideation Skin exam: PRESENT: dry, intact, warm. ABSENT: cyanosis, jaundice - resolved, rash Results Laboratory Results: WBC 4.2 10^3/uL (4.0-10.5) 05/17/20 04:43 RBC 3.62 10^6/uL (4.35-5.55) L 05/17/20 04:43 Hgb 12.4 g/dL (13.5-17.0) L 05/17/20 04:43 Hct 35.8 % (37.9-51.0) L 05/17/20 04:43 MCV 99 fl (80-97) H 05/17/20 04:43 MCH 34.2 pg (27.0-33.4) H 05/17/20 04:43 MCHC 34.7 g/dL (32.0-36.0) 05/17/20 04:43 RDW 14.6 % (11.5-14.0) H 05/17/20 04:43 Plt Count 159 10^3/uL (150-450) 05/17/20 04:43 Lymph % (Auto) 33.7 % (13-45) 05/17/20 04:43 [place] % (Auto) 8.5 % (3-13) 05/17/20 04:43 Eos % (Auto) 2.1 % (0-6) 05/17/20 04:43 Baso % (Auto) 0.7 % (0-2) 05/17/20 04:43 Reticulocyte # 0.056 10^6/uL (0.028-0.122) 05/17/20 04:43 Absolute Neuts (auto) 2.3 10^3/uL (1.7-8.2) 05/17/20 04:43 Absolute Lymphs (auto) 1.4 10^3/uL (0.5-4.7) 05/17/20 04:43 Absolute Monos (auto) 0.4 10^3/uL (0.1-1.4) 05/17/20 04:43 Absolute Eos (auto) 0.1 10^3/uL (0.0-0.6) 05/17/20 04:43 Absolute Basos (auto) 0.0 10^3/uL (0.0-0.2) 05/17/20 04:43 Seg Neutrophils % 55.0 % (42-78) 05/17/20 04:43 Retic Count (auto) 1.53 % (0.66-2.85) 05/17/20 04:43 PT 12.3 SEC (11.4-15.4) 05/17/20 04:43 INR 0.90 05/17/20 04:43 INR (Anticoag Therapy) Cancelled 05/15/20 18:30 APTT 31.7 SEC (23.5-35.8) 05/17/20 04:43 Sodium 136.9 mmol/L (137-145) L 05/17/20 04:43 Potassium 4.5 mmol/L (3.6-5.0) 05/17/20 04:43 Chloride 101 mmol/L (98-107) 05/17/20 04:43 Carbon Dioxide 34 mmol/L (22-30) H 05/17/20 04:43 Anion Gap 2 (5-19) L 05/17/20 04:43 BUN 22 mg/dL (7-20) H 05/17/20 04:43 Creatinine 1.22 mg/dL (0.52-1.25) 05/17/20 04:43 Est GFR ( Amer) > 60 (>60) 05/17/20 04:43 Est GFR (MDRD) Non-Af 59 (>60) L 05/17/20 04:43 Glucose 86 mg/dL (75-110) 05/17/20 04:43 Calcium 9.3 mg/dL (8.4-10.2) 05/17/20 04:43 Phosphorus 3.3 mg/dL (2.5-4.5) 05/17/20 04:43 Magnesium 2.1 mg/dL (1.6-2.3) 05/17/20 04:43 Iron 109.5 ug/dL (49-181) 05/17/20 04:43 TIBC 248 ug/dL (250-450) L 05/17/20 04:43 % Saturation 44 % 05/17/20 04:43 Ferritin 434.00 ng/mL (17.9-464.0) 05/17/20 04:43 Total Bilirubin 0.9 mg/dL (0.2-1.3) 05/17/20 04:43 Direct Bilirubin 0.5 mg/dL (0.0-0.4) H 05/17/20 04:43 Neonat Total Bilirubin Not Reportable 05/17/20 04:43 Neonat Direct Bilirubin Not Reportable 05/17/20 04:43 Neonat Indirect Bili Not Reportable 05/17/20 04:43 AST 100 U/L (17-59) H 05/17/20 04:43 ALT 137 U/L (<50) H 05/17/20 04:43 Alkaline Phosphatase 480 U/L (38-126) H 05/17/20 04:43 Ammonia 13.3 umol/L (9-33) 05/15/20 18:30 NT-Pro-B Natriuret Pep 991 pg/mL (<125) H 05/15/20 18:30 Total Protein 5.4 g/dL (6.3-8.2) L 05/17/20 04:43 Albumin 2.9 g/dL (3.5-5.0) L 05/17/20 04:43 Lipase 451.6 U/L (23-300) H 05/15/20 18:30 Vitamin B12 334.0 pg/mL (239-931) 05/17/20 04:43 Folate 5.57 ng/mL (>2.76) 05/17/20 04:43 TSH 1.50 uIU/mL (0.47-4.68) 05/17/20 04:43 Free T4 1.31 ng/dL (0.78-2.19) 05/17/20 04:43 Urine Color REE 05/15/20 21:30 Urine Appearance CLEAR 05/15/20 21:30 Urine pH 6.0 (5.0-9.0) 05/15/20 21:30 Ur Specific [place] 1.021 05/15/20 21:30 Urine Protein NEGATIVE mg/dL (NEGATIVE) 05/15/20 21:30 Urine Glucose (UA) NEGATIVE mg/dL (NEGATIVE) 05/15/20 21:30 Urine Ketones NEGATIVE mg/dL (NEGATIVE) 05/15/20 21:30 Urine Blood NEGATIVE (NEGATIVE) 05/15/20 21:30 Urine Nitrite NEGATIVE (NEGATIVE) 05/15/20 21:30 Urine Bilirubin NEGATIVE (NEGATIVE) 05/15/20 21:30 Urine Urobilinogen 4.0 mg/dL (<2.0) H 05/15/20 21:30 Ur Leukocyte Esterase NEGATIVE (NEGATIVE) 05/15/20 21:30 Urine WBC (Auto) 0 /HPF 05/15/20 21:30 Urine RBC (Auto) 4 /HPF 05/15/20 21:30 Calcium Oxalate Cr Auto FEW /HPF 05/15/20 21:30 Urine Mucus (Auto) RARE /LPF 05/15/20 21:30 Urine Ascorbic Acid NEGATIVE (NEGATIVE) 05/15/20 21:30 Fluid Type PERITONEAL 05/16/20 13:55 Fluid Source ASCITES 05/16/20 13:55 Fluid Color LIGHT YELLOW 05/16/20 13:55 Fluid Appearance CLEAR 05/16/20 13:55 Fluid Viscosity LIQUID 05/16/20 13:55 Fluid WBC 110 /uL 05/16/20 13:55 Fluid RBC 211 /uL 05/16/20 13:55 Fluid Seg Neutrophils 5 % 05/16/20 13:55 Fluid Lymphocytes 62 % 05/16/20 13:55 Fluid Monocytes 33 % 05/16/20 13:55 Fluid Eosinophils 0 % 05/16/20 13:55 Fluid Basophils 0 % 05/16/20 13:55 Serum Alcohol < 10 mg/dL (NONE DETECTED) 05/15/20 18:30 Hepatitis A IgM Ab Negative (Negative) 05/15/20 18:30 Hep Bs Antigen Negative (Negative) 05/15/20 18:30 Hep B Core IgM Ab Negative (Negative) 05/15/20 18:30 Hepatitis C Antibody >11.0 s/co ratio (0.0-0.9) H 05/15/20 18:30 05/15/20 18:30 NT-Pro-B Natriuret Pep 991 H Impressions: Abdomen/Pelvis CT 05/15/20 17:31 IMPRESSION: Progressive medical hepatic disease when compared to prior. Moderate ascites. This is potentially percutaneously accessible. No acute intrathoracic process is identified. Remote posttraumatic/postsurgical change to the left hemithorax. Chest X-Ray 05/15/20 17:33 IMPRESSION: NO ACUTE RADIOGRAPHIC FINDING IN THE CHEST. Chest CT 05/15/20 22:23 IMPRESSION: Progressive medical hepatic disease when compared to prior. Moderate ascites. This is potentially percutaneously accessible. No acute intrathoracic process is identified. Remote posttraumatic/postsurgical change to the left hemithorax. Paracentesis Ultrasound 05/16/20 00:39 IMPRESSION: Successful ultrasound-guided paracentesis Plan Plan of Treatment: Patient is discharged home in stable condition. He is advised to follow up with his primary care provider within 1 week. Continue medications as prescribed. Do not drink alcohol. Return to the emergency department, as needed, for concerning symptoms. Time Spent: Greater than 30 Minutes Stroke Is this a Stroke Patient?: No Acute Heart Failure Is this a Heart Failure Patient?: No
== END 2020-05-17 13:23 | disposition home or self-care (01) | DRG 434 ==
LOC: ER 16:18 → EH 05-16 00:43 → 4N 05-16 02:55
PROVIDERS: ADMIT Internal Medicine; ATTEND Registered Nurse
PROC: 0W9G3ZZ Drainage of Peritoneal Cavity, Percutaneous Approach (ICD-10-PCS; principal; 2020-05-16)
DX: K70.31 Alcoholic cirrhosis of liver with ascites (principal); K70.11 Alcoholic hepatitis with ascites; F10.21 Alcohol dependence, in remission; F31.9 Bipolar disorder, unspecified; I10 Essential (primary) hypertension; R73.03 Prediabetes; F17.200 Nicotine dependence, unspecified, uncomplicated; R13.10 Dysphagia, unspecified; R63.4 Abnormal weight loss
CPT/HCPCS: 36415; 49083; 71046; 71260; 74177; 80053; 80074; 80307; 81001; 82042; 82140; 82150; 82607; 82728; 82746; 82945; 83540; 83550; 83615; 83690; 83735; 83880; 83986; 84100; 84439; 84443; 85025; 85045; 85610; 85730; 89050; 96361; 96374; 99285; A9270-GY; J1940; J2405; J3490; J7030; J7060

== ENCOUNTER 2020-07-21 16:48 | Emergency (ER) | payer MEDICARE ==
[2020-07-21] MEDS ORDERED: NORMAL SALINE 500 ML with OCTREOTIDE ACETATE 500 MCG IV PRN ×2 (16:57)
[2020-07-21] MEDS ORDERED: PANTOPRAZOLE SODIUM 40 MG VIAL IV PRN (16:57)
[2020-07-21] MEDS ORDERED: LIDOCAINE 2% INJ (20 MG/ML) 20 ML MDV INJ ONE (16:58)
--- NOTE | 2020-07-21 17:05 | ER Document Report ---
ED General - General Stated Complaint: VOMITTING Time Seen by Provider: 07/21/20 16:53 Notes: 70-year-old male presents with dark stool dizziness and nausea vomiting. V omiting for several days. Nonbloody. His vomit does not have coffee-ground or blood in it but he has had bleeding in his GI tract before in the setting of what looks like end-stage cirrhosis. He is currently homeless not taking on any medications. He does not have a history of alcoholic cirrhosis but did have hepatitis C years ago. He has been seen once before for ascites and had it drained. 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" Psychiatric Medical History: Reports: Hx Bipolar Disorder, Hx Depression Review of Systems - Review of Systems Notes: REVIEW OF SYSTEMS GEN: Denies fever, chills, weight loss ENT: Denies sore throat, nasal discharge, ear pain EYES: Denies blurry vision, eye pain, discharge CV: Denies chest pain, palpitations, edema RESP: Denies cough, shortness of breath, wheezing GI: See HPI abdominal pain and distention MSK: Denies joint pain/swelling, edema, SKIN: Denies rash, skin lesions LYMPH: Denies swollen glands/lymph nodes NEURO: Denies headache, focal weakness or numbness, dizziness PSYCH: Denies depression, suicidal or homicidal ideation PHYSICAL EXAMINATION General: No acute distress, well-nourished Head: Atraumatic, normocephalic ENT: Mouth normal, oropharynx moist, no exudates or tonsillar enlargement Eyes: Conjunctiva normal, pupils equal, lids normal Neck: No JVD, supple, no guarding CVS: Normal rate, regular rhythm, no murmurs Resp: No resp distress, equal and normal breath sounds bilaterally GI: Tender tense ascites, melena present Ext: No deformities, no edema, normal range of motion in upper and lower ext Back: No CVA or midline TTP Skin: Pale but no jaundice Lymphatic: No lymphadeopathy noted Neuro: Awake, alert. Face symmetric. No asterixis Physical Exam - Vital signs Vitals: Resp BP Pulse Ox 16 152/79 H 98 07/21/20 17:06 07/21/20 17:06 07/21/20 17:06 Course - Re-evaluation Re-evalutation: 07/21/20 17:06 Cirrhosis with likely GI bleed, variceal versus gastritis Currently stable, but high risk and may also have SBP We will arrange for labs paracentesis start Rocephin Protonix and octreotide drip and arrange for transfer to higher level of care 07/21/20 20:03 Paracentesis is done. Cell counts look good INR slightly prolonged. Anemia unchanged from prior. No criteria for SBP but is already received antibiotics. Stable on drips Discussed with Dr. Blandon, accepted. Treated for SBP with Rocephin. - Vital Signs Vital signs: Temp Pulse Resp BP Pulse Ox 98.5 F 12 150/79 H 96 07/21/20 17:29 07/21/20 19:00 07/21/20 19:00 07/21/20 19:00 - Laboratory Result Diagrams: 07/21/20 17:14 07/21/20 17:14 Laboratory results interpreted by me: 07/21/20 07/21/20 07/21/20 17:14 17:14 17:14 RBC 3.51 L Hgb 12.3 L Hct 36.5 L MCV 104 H MCH 35.2 H RDW 17.2 H Seg Neutrophils % 78.5 H Chloride 108 H BUN 61 H Creatinine 2.14 H Est GFR ( Amer) 37 L Est GFR (MDRD) Non-Af 31 L Total Bilirubin 3.5 H Direct Bilirubin 2.4 H AST 172 H ALT 907 H Alkaline Phosphatase 534 H Albumin 2.9 L Procedures - Paracentesis LLQ Consent obtained: Yes Paracentesis pre-procedure: Sterile PPE donned, Chloraprep applied, Sterile drapes applied Needle size: 16 Anesthetic type: 1% Lidocaine mL's of anesthetic: 3 Amount/type of drainage: Approximately 5 L of bloody serous fluid Number of attempts: 1 Ultrasound guided: Yes Complications: No Critical Care Note - Critical Care Note Total time excluding time spent on procedures (mins): 35 Comments: The above patient is critically ill. Not including procedures, but including direct re-evaluations, speaking with patient and/or consultants, interpreting results, and documenting, I spent the total amount of minute listed listed above on critical care time Discharge - Discharge Clinical Impression: Upper GI bleed Ascites Qualifiers: Ascites type: other type Qualified Code(s): R18.8 - Other ascites Cirrhosis Qualifiers: Hepatic cirrhosis type: unspecified hepatic cirrhosis Ascites presence: with ascites Qualified Code(s): K74.60 - Unspecified cirrhosis of liver; R18.8 - Other ascites Condition: Fair Disposition: [facility]
[2020-07-21] MEDS ORDERED: CEFTRIAXONE 1 GM/D5W RTU 1 GM/50 ML RTUPB IV ONE (17:30)
[2020-07-21 17:36] LABS: ABSOLUTE LYMPHOCYTES (AUTO) 1.5 10^3/uL (0.5-4.7); ABSOLUTE MONOCYTES (AUTO) 0.5 10^3/uL (0.1-1.4); ABSOLUTE NEUT (AUTO) 7.4 10^3/uL (1.7-8.2); BASOPHILS % (AUTO) 0.1 % (0-2); HEMATOCRIT 36.5 % (37.9-51.0); HEMOGLOBIN 12.3 g/dL (13.5-17.0); LYMPHOCYTES % (AUTO) 15.8 % (13-45); MEAN CORPUSCULAR HEMOGLOBIN 35.2 pg (27.0-33.4); MEAN CORPUSCULAR HGB CONC 33.8 g/dL (32.0-36.0); MEAN CORPUSCULAR VOLUME 104 fl (80-97); MONOCYTES % (AUTO) 5.6 % (3-13); RED BLOOD COUNT 3.51 10^6/uL (4.35-5.55); RED CELL DISTRIBUTION WIDTH 17.2 % (11.5-14.0); SEGMENTED NEUTROPHILS % (AUTO) 78.5 % (42-78); TOTAL CELLS COUNTED % (AUTO) 100 %; WHITE BLOOD COUNT 9.4 10^3/uL (4.0-10.5)
[2020-07-21 17:39] LABS: INTERNATIONAL RATION (INR) 1.04; PROTHROMBIN TIME 13.8 SEC (11.4-15.4)
[2020-07-21] MEDS ORDERED: ONDANSETRON HCL INJ/PF 4 MG/2 ML SDV IV ONE (17:46)
[2020-07-21 17:50] LABS: ANION GAP 8 (5-19); BLOOD UREA NITROGEN 61 mg/dL (7-20); CALCIUM 9.4 mg/dL (8.4-10.2); CARBON DIOXIDE 25 mmol/L (22-30); CHLORIDE 108 mmol/L (98-107); GLUCOSE 86 mg/dL (75-110); POTASSIUM 4.7 mmol/L (3.6-5.0)
[2020-07-21 17:56] LABS: PLATELET COUNT 167 10^3/uL (150-450)
[2020-07-21 18:41] LABS: ALBUMIN 2.9 g/dL (3.5-5.0); ALKALINE PHOSPHATASE 534 U/L (38-126); ASPARTATE AMINO TRANSFERASE 172 U/L (17-59); BILIRUBIN,DIRECT 2.4 mg/dL (0.0-0.4); BILIRUBIN,TOTAL 3.5 mg/dL (0.2-1.3); TOTAL PROTEIN 6.5 g/dL (6.3-8.2)
[2020-07-21] MEDS ORDERED: OCTREOTIDE ACETATE INJ/PF 100 MCG/1 ML SDV ONE ×2 (19:00→19:03)
[2020-07-21 19:08] LABS: FLUID APPEARANCE CLOUDY; FLUID COLOR RED; FLUID SOURCE ASCITES; FLUID TYPE PLEURAL; FLUID VISCOSITY LIQUID
[2020-07-21] MEDS ORDERED: PANTOPRAZOLE SODIUM 40 MG VIAL IV ONE (19:34)
[2020-07-21 21:30] VITALS: BP 132/65
== END 2020-07-21 21:28 | disposition short-term general hospital (02) ==
LOC: ER 16:48
DX: K92.2 Gastrointestinal hemorrhage, unspecified (principal); K74.60 Unspecified cirrhosis of liver; R18.8 Other ascites; R11.10 Vomiting, unspecified; I10 Essential (primary) hypertension; Z59.0 Homelessness; Z91.14 Patient's other noncompliance with medication regimen
CPT/HCPCS: 99285; 96375; 96365; 96366; 96367; 86900; 86901; 36415; 87205; 87070; 86850; 82140; 83690; 85025; 85610; 89050; 87075; 80076; 80048; 49083; C9113; J2405; J0696; 96361